=== PATIENT | male | born 1985 | race Caucasian/White ===

== ENCOUNTER 2024-10-02 13:20 | Emergency (ER) | payer SELFPAY ==
[~2024-10-02] VITALS: Ht 172.7 cm; Wt 100.0 kg
[2024-10-02 13:41] VITALS: O2SAT 100
[2024-10-02 15:52] LABS: BASOPHILS % 0.3 % (0.0-2.0); EOSINOPHILS % 0.3 % (0.0-5.0); HEMOGLOBIN. 15.1 g/dL (14.0-18.0); LYMPHOCYTES % 16.6 % (20.0-50.0); MEAN CORPUSCULAR HEMOGLOBIN 29.9 pg (28.0-32.0); MEAN CORPUSCULAR HGB CONC 34.3 g/dL (31.0-37.0); MEAN CORPUSCULAR VOLUME 87.4 fL (80.0-94.0); MEAN PLATELET VOLUME 9.3 fl (7.4-10.4); MONOCYTES % 5.8 % (2.0-8.0); PLATELET 246 x1000/uL (130-400); RED BLOOD CELL COUNT 5.04 mill/uL (4.7-6.1); RED CELL DISTRIBUTION WIDTH 13.4 % (11.6-14.6); WHITE BLOOD COUNT 13.7 x1000/uL (4.5-11.0)
[2024-10-02 15:56] LABS: CHLORIDE 105 mEq/L (98-107); POTASSIUM 3.6 mEq/L (3.5-5.1); SODIUM 141 mEq/L (136-145)
[2024-10-02 15:57] LABS: CALCIUM 9.8 mg/dL (8.7-10.4); CARBON DIOXIDE 28 mEq/L (21-32)
[2024-10-02 16:02] LABS: GLUCOSE 91 mg/dL (70-105); INR 0.9; PROTHROMBIN TIME 10.3 sec (9.6-11.0); UREA NITROGEN BLOOD 15 mg/dL (9-23)
[2024-10-02 16:04] LABS: ALANINE AMINOTRANSFERASE 23 IU/L (10-49); ALBUMIN 4.6 g/dL (3.2-4.8); ASPARTATE AMINOTRANSFERASE 15 IU/L (<34); BILIRUBIN DIRECT 0.1 mg/dL (<=3.0); BILIRUBIN TOTAL 0.6 mg/dL (0.1-1.0); PROTEIN TOTAL 7.3 g/dL (6.0-8.3)
[2024-10-02 17:49] VITALS: BP 122/76; PULSE 72; RESP 18; TEMP 37.11408; O2SAT 100
== END 2024-10-02 17:49 | disposition home or self-care (01) ==
LOC: ER 13:30
DX: K62.5 Hemorrhage of anus and rectum (principal); F10.20 Alcohol dependence, uncomplicated; Z98.890 Other specified postprocedural states; Y90.9 Presence of alcohol in blood, level not specified
CPT/HCPCS: 36415; 80048; 80076; 82270; 85025; 86850; 86900; 99283